=== PATIENT | male | born 1985 ===

== ENCOUNTER 2018-11-13 12:53 | Observation (INO) | payer OTHER ==
[2018-11-13 13:05] VITALS: BMI 26.7
--- NOTE | 2018-11-13 13:49 | ED PDOC ---
HPI: Chest Pain Time Seen by Provider: 11/13/18 13:25 Chief Complaint (Nursing): Chest Pain Chief Complaint (Provider): Chest Pain History Per: Patient History/Exam Limitations: no limitations Onset/Duration Of Symptoms: Days (last night) Current Symptoms Are (Timing): Still Present Additional Complaint(s): 33 year old male presents to the ED an evaluation of chest pain and palpitations associated with shortness of breath for 2 hours. He admits to doing cocaine and alcohol last night. Otherwise, he denies fever. PMD: no family provider Past Medical History Reviewed: Historical Data, Nursing Documentation, Vital Signs Vital Signs: Last Vital Signs Temp 98.1 F 11/13/18 13:08 Pulse 101 H 11/13/18 13:08 Resp 18 11/13/18 13:08 BP 131/89 11/13/18 13:08 Pulse Ox 98 11/13/18 13:08 - Medical History PMH: No Chronic Diseases - Family History Family History: States: Unknown Family Hx - Social History Alcohol: Social Drugs: Cannabis - Home Medications Home Medications: Ambulatory Orders Medication Instructions Recorded No Known Home Med 11/13/18 - Allergies Allergies/Adverse Reactions: Allergies Allergy/AdvReac Type Severity Reaction Status Date / Time No Known Allergies Allergy Verified 11/13/18 13:07 Review of Systems ROS Statement: Except As Marked, All Systems Reviewed And Found Negative Constitutional: Negative for: Fever Cardiovascular: Positive for: Chest Pain, Palpitations Respiratory: Positive for: Shortness of Breath Physical Exam - Reviewed Nursing Documentation Reviewed: Yes Vital Signs Reviewed: Yes - Physical Exam Appears: Positive for: Non-toxic, No Acute Distress Head Exam: Positive for: ATRAUMATIC, NORMAL INSPECTION, NORMOCEPHALIC Skin: Positive for: Normal Color, Warm, Dry Eye Exam: Positive for: EOMI, Normal appearance, PERRL ENT: Positive for: Normal ENT Inspection Neck: Positive for: Normal, Painless ROM, Supple. Negative for: Decreased ROM Cardiovascular/Chest: Positive for: Regular Rate, Rhythm. Negative for: Murmur Respiratory: Positive for: Normal Breath Sounds. Negative for: Respiratory Distress Gastrointestinal/Abdominal: Positive for: Normal Exam, Soft Back: Positive for: Normal Inspection Extremity: Positive for: Normal ROM Neurologic/Psych: Positive for: Alert, Oriented (x3) - Laboratory Results Result Diagrams: 11/13/18 14:28 11/13/18 14:28 - ECG ECG: Positive for: Interpreted By Me, Viewed By Me ECG Rhythm: Positive for: Sinus Rhythm Rate: 98 O2 Sat by Pulse Oximetry: 98 Medical Decision Making Medical Decision Making: Time: 1329 Impression: chest pain, palpitations associated with cocaine and alcohol use r/o ACS Plan: --EKG --Alcohol serum --CMP --Drug screen --Troponin --ED urine dipstick --CBC w/ differential --Chest two views [RAD] --Ativan 1mg --Reevaluation EKG: Normal sinus rhythm at [address] changes 1451 CXR: FINDINGS: LUNGS: Poor inspiration with low lung volumes, crowded bronchovascular markings and mild bibasilar atelectasis. There is a small approximately 4 mm elliptical shap ed nodular density seen in the right CP angle overlying the right posterior anterior 6 rib and right posterior 8th rib. This probably represents a small granuloma however small bone island or osteoma not completely excluded. Repeat radiographs in 2 months could be performed to assess stability alternately, nonemergent CT scan of the chest could be obtained. PLEURA: No significant pleural effusion identified. No pneumothorax apparent. CARDIOVASCULAR: No aortic atherosclerotic calcification present. Normal cardiac size. No pulmonary vascular congestion. OSSEOUS STRUCTURES: No significant abnormalities. VISUALIZED UPPER ABDOMEN: Normal. OTHER FINDINGS: None. IMPRESSION: Poor inspiration with low lung volumes, crowded bronchovascular markings and mild bibasilar atelectasis. There is a small approximately 4 mm elliptical shaped nodular density seen in the right CP angle overlying the right posterior anterior 6 rib and right posterior 8th rib. This probably represents a small granuloma however small bone island or osteoma not completely excluded. Repeat radiographs in 2 months could be performed to assess stability alternately, nonemergent CT scan of the chest could be obtained. Shlomo Attestation: Documented by Laura Larson, acting as a scribe for Bonilla Jean Baptiste MD. Provider Scribe Attestation: All medical record entries made by the Scribe were at my direction and person ally dictated by me. I have reviewed the chart and agree that the record accurately reflects my personal performance of the history, physical exam, medical decision making, and the department course for this patient. I have also personally directed, reviewed, and agree with the discharge instructions and disposition. Disposition - Clinical Impression Clinical Impression: Chest pain, Cocaine abuse - Patient ED Disposition Is Patient to be Admitted: Yes - Disposition Disposition Time: 17:36 Condition: FAIR Forms: [employer]! ([place]) - Pt Status Changed To: Hospital Disposition Of: Observation - POA Present On Arrival: None
[2018-11-13 14:55] LABS: BASO % 0.2 % (0.0-2.0); EOS # 0.1 K/uL (0.0-0.7); EOS % 0.8 % (0.0-4.0); HEMOGLOBIN 14.9 g/dL (12.0-18.0); LYMPH # 1.2 K/uL (1.0-4.3); LYMPH % 18.4 % (20.0-40.0); MEAN CELL VOLUME 94.3 fl (80.0-94.0); MEAN CORPUSCULAR HEMOGLOBIN 31.8 pg (27.0-31.0); MEAN CORPUSCULAR HGB CONC 33.7 g/dL (33.0-37.0); MEAN PLATELET VOLUME 8.2 fl (7.2-11.7); MONO # 0.3 K/uL (0.0-0.8); MONO % 4.6 % (0.0-10.0); NRBC % 0.1 % (0.0-0.0); RBC 4.69 Mil/uL (4.40-5.90); RED CELL DISTRIBUTION WIDTH 13.1 % (11.5-14.5); WHITE BLOOD COUNT 6.6 K/uL (4.8-10.8)
--- NOTE | 2018-11-13 14:55 | RAD ---
Date of service: 11/13/2018 HISTORY: chest pain COMPARISON: No prior study available comparison TECHNIQUE: Chest PA and lateral FINDINGS: LUNGS: Poor inspiration with low lung volumes, crowded bronchovascular markings and mild bibasilar atelectasis. There is a small approximately 4 mm elliptical shaped nodular density seen in the right CP angle overlying the right posterior anterior 6 rib and right posterior 8th rib. This probably represents a small granuloma however small bone island or osteoma not completely excluded. Repeat radiographs in 2 months could be performed to assess stability alternately, nonemergent CT scan of the chest could be obtained. PLEURA: No significant pleural effusion identified. No pneumothorax apparent. CARDIOVASCULAR: No aortic atherosclerotic calcification present. Normal cardiac size. No pulmonary vascular congestion. OSSEOUS STRUCTURES: No significant abnormalities. VISUALIZED UPPER ABDOMEN: Normal. OTHER FINDINGS: None. IMPRESSION: Poor inspiration with low lung volumes, crowded bronchovascular markings and mild bibasilar atelectasis. There is a small approximately 4 mm elliptical shaped nodular density seen in the right CP angle overlying the right posterior anterior 6 rib and right posterior 8th rib. This probably represents a small granuloma however small bone island or osteoma not completely excluded. Repeat radiographs in 2 months could be performed to assess stability alternately, nonemergent CT scan of the chest could be obtained.
[2018-11-13 15:03] LABS: ALB/GLOB RATIO 1.4 (1.0-2.1); ALBUMIN 4.9 g/dL (3.5-5.0); ALT/SGPT 73 U/L (21-72); AST/SGOT 46 U/L (17-59); BLOOD UREA NITROGEN 17 mg/dl (9-20); CALCIUM 9.3 mg/dL (8.4-10.2); GFR NON-AFRICAN AMERICAN > 60
[2018-11-13 18:10] LABS: BARBITURATES, UR NEGATIVE (NEGATIVE); BENZODIAZEPINES, UR NEGATIVE (NEGATIVE); OPIATES, UR NEGATIVE (NEGATIVE); PHENCYCLIDINE, UR NEGATIVE (NEGATIVE)
--- NOTE | 2018-11-13 19:00 | CP.PCM.HP ---
History of Present Illness - History of Present Illness History of Present Illness: 33 y/o male with no PMH came to ER for evaluation because he was not feeling well. History obtained from patient .As per him he was drinking last night heavily , more than 15 beers and used some cocaine that was given to him by a friend at 3 AM . As per patient this was the first time he used drugs (snorted) . Later he states that fell asleep and woke up this AM at 11 and felt nauseated , vomited once and saw fresh blood in his gastric content and started feeling sweaty with numbness to his hands and feet, feeling like he could not breathe. He also states that has some pain in the left chest mild with no radiation. He came to ED where he receivced some ativan and norw feels better . At present he is hemodynamically stable HR 101 BP 131/89 RR 18 saturating 98 % in RA Denies any dyspnea on exertion ,PND , orthopnea , urinary symptoms or chnages in bowel movements Allergies ; NKDA PMH :none Medications; None Surgery ; None Family history ; Mother and father have DM Social history: Lives with a friend in [place] , works in a restaurant in [place] , and has 3 children but family lives in [place] ,Smokes less 1 cigg / day ,drinks , 5 beer /day , denies prior durg abuse history ROS ; 10 point review of system negative except above PMD ; No PMD Present on Admission - Present on Admission Any Indicators Present on Admission: No Review of Systems - Review of Systems All systems: reviewed and no additional remarkable complaints except Past Patient History - Infectious Disease Hx of Infectious Diseases: None - Tetanus Immunizations Tetanus Immunization: Unknown - Past Medical History & Family History Past Medical History?: No Past Family History: Reviewed and not pertinent - Past Social History Smoking Status: Light Smoker < 10 Cigarettes Daily Chewing Tobacco Use: No Cigar Use: No Alcohol: > 2 Drinks/Day Drugs: Cannabis, Cocaine Home Situation {Lives}: Friends Domestic Violence: Negative - PSYCHIATRIC Hx Substance Use: Yes - SURGICAL HISTORY Hx Surgeries: No Meds Allergies/Adverse Reactions: Allergies Allergy/AdvReac Type Severity Reaction Status Date / Time No Known Allergies Allergy Verified 11/13/18 13:07 Physical Exam - Constitutional Appears: Non-toxic, No Acute Distress - Head Exam Head Exam: ATRAUMATIC, NORMAL INSPECTION, NORMOCEPHALIC - Eye Exam Eye Exam: EOMI, Normal appearance, PERRL Pupil Exam: NORMAL ACCOMODATION - ENT Exam ENT Exam: Mucous Membranes Moist, Normal Exam - Neck Exam Neck exam: Positive for: Full Rom, Normal Inspection - Respiratory Exam Respiratory Exam: Clear to Auscultation Bilateral, NORMAL BREATHING PATTERN. absent: Rales, Rhonchi, Wheezes - Cardiovascular Exam Cardiovascular Exam: REGULAR RHYTHM, RRR, +S1, +S2. absent: JVD - GI/Abdominal Exam GI & Abdominal Exam: Normal Bowel Sounds, Soft. absent: Distended, Guarding, Rebound, Tenderness - Rectal Exam Rectal Exam: Deferred - Extremities Exam Extremities exam: Positive for: normal capillary refill, normal inspection, pedal pulses present. Negative for: calf tenderness, pedal edema - Back Exam Back exam: NORMAL INSPECTION - Neurological Exam Neurological exam: Alert, CN II-XII Intact, Oriented x3, Reflexes Normal - Psychiatric Exam Psychiatric exam: Normal Affect, Normal Mood - Skin Skin Exam: Dry, Intact, Normal Color, Warm Results - Vital Signs Recent Vital Signs: Last Vital Signs Temp 98.1 F 11/13/18 13:08 Pulse 98 H 11/13/18 17:36 Resp 18 11/13/18 13:08 BP 131/89 11/13/18 13:08 Pulse Ox 98 11/13/18 17:36 - Labs Result Diagrams: 11/13/18 14:28 11/13/18 14:28 Labs: Laboratory Results - last 24 hr 11/13/18 11/13/18 11/13/18 14:28 14:28 17:46 WBC 6.6 RBC 4.69 Hgb 14.9 Hct 44.2 MCV 94.3 H MCH 31.8 H MCHC 33.7 RDW 13.1 Plt Count 302 MPV 8.2 Neut % (Auto) 76.0 H Lymph % (Auto) 18.4 L [place] % (Auto) 4.6 Eos % (Auto) 0.8 Baso % (Auto) 0.2 Neut # (Auto) 5.0 Lymph # (Auto) 1.2 [place] # (Auto) 0.3 Eos # (Auto) 0.1 Baso # (Auto) 0.0 Sodium 140 Potassium 4.1 Chloride 102 Carbon Dioxide 22 Anion Gap 20 BUN 17 Creatinine 0.6 L Est GFR ( Amer) > 60 Est GFR (Non-Af Amer) > 60 Random Glucose 134 H Calcium 9.3 Total Bilirubin 0.3 AST 46 ALT 73 H Alkaline Phosphatase 86 Troponin I < 0.0120 Total Protein 8.4 H Albumin 4.9 Globulin 3.5 Albumin/Globulin Ratio 1.4 Urine Opiates Screen Negative Urine Methadone Screen Negative Ur Barbiturates Screen Negative Ur Phencyclidine Scrn Negative Ur Amphetamines Screen Negative U Benzodiazepines Scrn Negative U Oth Cocaine Metabols Positive H U Cannabinoids Screen Negative Alcohol, Quantitative 62 H - Imaging and Cardiology Chest x-ray Additional comment: no active disease Assessment & Plan - Assessment and Plan (Free Text) Assessment: 33 y/o male with no PMH came to ER for evaluation because he was not feeling well. History obtained from patient .As per him he was drinking last night heavily , more than 15 beers and used some cocaine that was given to him by a friend at 3 AM . As per patient this was the first time he used drugs (snorted) . Later he states that fell asleep and woke up at 11 AM ,felt nauseated , vomited once and saw fresh blood in his gastric content and started feeling sweaty with numbness to his hands and feet, feeling like he could not breathe. He also states that had some pain in the left side of his chest ,mild with no radiation. In ER was given Ativan and felt better Patient also gives history of social anxiety in public 1. Upper GI bleed Most likely secondary to ETOH gastritis Denies prior similar episodes Hgb 14 Will repeat CBC in AM Start Protonix IV Counselled on ETOH abuse 2. ETOH abuse/ intoxication Will start IVF , thiamine, Folic acid and MVI Withdrawal precautions Ativan PRN for withdrwals 3. Chest pain unlikely cardiac in nature Place under observation in telemetry Most likely panic / anxiety attack Ativan PRN Cycle troponins Q8 hours to rule out ACS Check Lipid profile 4. Cocaine abuse counselled patient on Drug abuse 5. DVt prophylaxis SCD
[2018-11-13] MEDS ORDERED: Thiamine 100 MG, Folic Acid 1 MG, Multivitamin (MVI) 10 ML in Sodium Chloride 0.9% 1,00... IV SCH (19:15)
--- NOTE | 2018-11-13 22:24 | CARD ---
APPROVED REPORT Date of service: 11/13/2018 EKG Measurement Heart [id number] <Conclusion> Normal sinus rhythm Normal ECG
[2018-11-14 05:17] LABS: HEMOGLOBIN 13.9 g/dL (12.0-18.0); MEAN CELL VOLUME 96.9 fl (80.0-94.0); MEAN CORPUSCULAR HEMOGLOBIN 32.4 pg (27.0-31.0); MEAN CORPUSCULAR HGB CONC 33.5 g/dL (33.0-37.0); RBC 4.29 Mil/uL (4.40-5.90); RED CELL DISTRIBUTION WIDTH 13.3 % (11.5-14.5); WHITE BLOOD COUNT 7.6 K/uL (4.8-10.8)
[2018-11-14 05:29] LABS: HDL CHOLESTEROL 43 MG/DL (30-70)
[2018-11-14 05:39] LABS: LDL CHOLESTEROL 128 mg/dL (0-129)
[2018-11-14 07:48] VITALS: RESP 18
[2018-11-14] MEDS ORDERED: Pneumococcal 23-Valent Vaccine IM ONE (10:45)
[2018-11-14] MEDS ORDERED: Influenza Vaccine 60 MCG/0.5 ML SYR (3 yr & up) IM ONE (10:45)
[2018-11-14 12:07] VITALS: BP 118/72; PULSE 66; TEMP 98.1; O2SAT 96
--- NOTE | 2018-11-14 13:53 | CP.PCM.DIS ---
<Fabian Krause - Last Filed: 11/14/18 14:06> Provider - Provider Date of Admission: 11/13/18 17:35 Attending physician: Yohannes Koehler MD Time Spent in preparation of Discharge (in minutes): 30 Hospital Course - Lab Results Lab Results: Most Recent Lab Values WBC 7.6 K/uL (4.8-10.8) 11/14/18 04:10 RBC 4.29 Mil/uL (4.40-5.90) L 11/14/18 04:10 Hgb 13.9 g/dL (12.0-18.0) 11/14/18 04:10 Hct 41.6 % (35.0-51.0) 11/14/18 04:10 MCV 96.9 fl (80.0-94.0) H D 11/14/18 04:10 MCH 32.4 pg (27.0-31.0) H 11/14/18 04:10 MCHC 33.5 g/dL (33.0-37.0) 11/14/18 04:10 RDW 13.3 % (11.5-14.5) 11/14/18 04:10 Plt Count 271 K/uL (130-400) 11/14/18 04:10 MPV 8.2 fl (7.2-11.7) 11/13/18 14:28 Neut % (Auto) 76.0 % (50.0-75.0) H 11/13/18 14:28 Lymph % (Auto) 18.4 % (20.0-40.0) L 11/13/18 14:28 [place] % (Auto) 4.6 % (0.0-10.0) 11/13/18 14:28 Eos % (Auto) 0.8 % (0.0-4.0) 11/13/18 14:28 Baso % (Auto) 0.2 % (0.0-2.0) 11/13/18 14:28 Neut # (Auto) 5.0 K/uL (1.8-7.0) 11/13/18 14:28 Lymph # (Auto) 1.2 K/uL (1.0-4.3) 11/13/18 14:28 [place] # (Auto) 0.3 K/uL (0.0-0.8) 11/13/18 14:28 Eos # (Auto) 0.1 K/uL (0.0-0.7) 11/13/18 14:28 Baso # (Auto) 0.0 K/uL (0.0-0.2) 11/13/18 14:28 Sodium 140 mmol/l (132-148) 11/13/18 14:28 Potassium 4.1 MMOL/L (3.6-5.0) 11/13/18 14:28 Chloride 102 mmol/L (98-107) 11/13/18 14:28 Carbon Dioxide 22 mmol/L (22-30) 11/13/18 14:28 Anion Gap 20 (10-20) 11/13/18 14:28 BUN 17 mg/dl (9-20) 11/13/18 14:28 Creatinine 0.6 mg/dl (0.8-1.5) L 11/13/18 14:28 Est GFR ( Amer) > 60 11/13/18 14:28 Est GFR (Non-Af Amer) > 60 11/13/18 14:28 Random Glucose 134 mg/dL (75-110) H 11/13/18 14:28 Calcium 9.3 mg/dL (8.4-10.2) 11/13/18 14:28 Total Bilirubin 0.3 mg/dl (0.2-1.3) 11/13/18 14:28 AST 46 U/L (17-59) 11/13/18 14:28 ALT 73 U/L (21-72) H 11/13/18 14:28 Alkaline Phosphatase 86 U/L (38-126) 11/13/18 14:28 Troponin I < 0.0120 ng/mL (0.00-0.120) 11/14/18 04:10 Total Protein 8.4 G/DL (6.3-8.2) H 11/13/18 14:28 Albumin 4.9 g/dL (3.5-5.0) 11/13/18 14:28 Globulin 3.5 gm/dL (2.2-3.9) 11/13/18 14:28 Albumin/Globulin Ratio 1.4 (1.0-2.1) 11/13/18 14:28 Triglycerides 176 mg/DL (0-149) H 11/14/18 04:10 Cholesterol 207 mg/dL (0-199) H 11/14/18 04:10 LDL Cholesterol Direct 128 mg/dL (0-129) 11/14/18 04:10 HDL Cholesterol 43 MG/DL (30-70) 11/14/18 04:10 Urine Opiates Screen Negative (NEGATIVE) 11/13/18 17:46 Urine Methadone Screen Negative (NEGATIVE) 11/13/18 17:46 Ur Barbiturates Screen Negative (NEGATIVE) 11/13/18 17:46 Ur Phencyclidine Scrn Negative (NEGATIVE) 11/13/18 17:46 Ur Amphetamines Screen Negative (NEGATIVE) 11/13/18 17:46 U Benzodiazepines Scrn Negative (NEGATIVE) 11/13/18 17:46 U Oth Cocaine Metabols Positive (NEGATIVE) H 11/13/18 17:46 U Cannabinoids Screen Negative (NEGATIVE) 11/13/18 17:46 Alcohol, Quantitative 62 mg/dl (0-10) H 11/13/18 14:28 - Hospital Course Hospital Course: 33 y/o male with no PMH admitted for chest pain, blood vomiting x 1 and first time cocain use. Patient also admits drinking heavily 1 day PRIMARY CARE MD. Patient evaluated in ER, received ativan with improvement in chest pain. EKG showed NSR, Troponis x 3 negative, CBC, CMP unremarkable. Patient started on pantoprazole for upper GI bleed. No further episode of vomiting since admission, tolerated diet well PO. Patient ambulating well w/o dizziness, headache, CP, SOB and stable VS. Patient to be discharged home on Librium tapering dose, pantoprazole 40 daily and thiamine. Patient to F/U with transition clinic with Dr. Donald. Discharge Medications - Librium 10 mg take Q6hr day1, Q8hr day 2, Q12 hr day 3 and QD day 4 - Pantoprazole 40 mg PO daily x 14 day - Thiamine 100 mg PO daily x 30 days Discharge Exam - Head Exam Head Exam: ATRAUMATIC, NORMAL INSPECTION, NORMOCEPHALIC - Eye Exam Eye Exam: EOMI, Normal appearance - ENT Exam ENT Exam: Mucous Membranes Moist - Neck Exam Neck exam: Full Rom - Respiratory Exam Respiratory Exam: Clear to PA & Lateral, NORMAL BREATHING PATTERN, UNREMARKABLE. absent: Rales, Rhonchi, Wheezes, Respiratory Distress - Cardiovascular Exam Cardiovascular Exam: REGULAR RHYTHM, +S1, +S2 - GI/Abdominal Exam GI & Abdominal Exam: Normal Bowel Sounds, Unremarkable. absent: Distended - Back Exam Back exam: NORMAL INSPECTION - Neurological Exam Neurological exam: Alert, Oriented x3 - Psychiatric Exam Psychiatric exam: Normal Affect, Normal Mood - Skin Skin Exam: Dry, Intact, Normal Color, Warm Discharge Plan - Discharge Medications Prescriptions: Omeprazole 40 mg PO DAILY #14 capsule. Thiamine [Vitamin B1 Tab] 100 mg PO DAILY #30 tab - Follow Up Plan Condition: FAIR Disposition: HOME/ ROUTINE Instructions: Chest Pain (DC), Drug Abuse and Drug Addiction (DC) Additional Instructions: follow up with primary doctor in 1 week Referrals: [facility] [Outside] <MorenoJenifferShimabreann Burnham - Last Filed: 11/14/18 14:55> Provider - Provider Date of Admission: 11/13/18 17:35 Attending physician: Yohannes Koehler MD Hospital Course - Lab Results Lab Results: Most Recent Lab Values WBC 7.6 K/uL (4.8-10.8) 11/14/18 04:10 RBC 4.29 Mil/uL (4.40-5.90) L 11/14/18 04:10 Hgb 13.9 g/dL (12.0-18.0) 11/14/18 04:10 Hct 41.6 % (35.0-51.0) 11/14/18 04:10 MCV 96.9 fl (80.0-94.0) H D 11/14/18 04:10 MCH 32.4 pg (27.0-31.0) H 11/14/18 04:10 MCHC 33.5 g/dL (33.0-37.0) 11/14/18 04:10 RDW 13.3 % (11.5-14.5) 11/14/18 04:10 Plt Count 271 K/uL (130-400) 11/14/18 04:10 MPV 8.2 fl (7.2-11.7) 11/13/18 14:28 Neut % (Auto) 76.0 % (50.0-75.0) H 11/13/18 14:28 Lymph % (Auto) 18.4 % (20.0-40.0) L 11/13/18 14:28 [place] % (Auto) 4.6 % (0.0-10.0) 11/13/18 14:28 Eos % (Auto) 0.8 % (0.0-4.0) 11/13/18 14:28 Baso % (Auto) 0.2 % (0.0-2.0) 11/13/18 14:28 Neut # (Auto) 5.0 K/uL (1.8-7.0) 11/13/18 14:28 Lymph # (Auto) 1.2 K/uL (1.0-4.3) 11/13/18 14:28 [place] # (Auto) 0.3 K/uL (0.0-0.8) 11/13/18 14:28 Eos # (Auto) 0.1 K/uL (0.0-0.7) 11/13/18 14:28 Baso # (Auto) 0.0 K/uL (0.0-0.2) 11/13/18 14:28 Sodium 140 mmol/l (132-148) 11/13/18 14:28 Potassium 4.1 MMOL/L (3.6-5.0) 11/13/18 14:28 Chloride 102 mmol/L (98-107) 11/13/18 14:28 Carbon Dioxide 22 mmol/L (22-30) 11/13/18 14:28 Anion Gap 20 (10-20) 11/13/18 14:28 BUN 17 mg/dl (9-20) 11/13/18 14:28 Creatinine 0.6 mg/dl (0.8-1.5) L 11/13/18 14:28 Est GFR ( Amer) > 60 11/13/18 14:28 Est GFR (Non-Af Amer) > 60 11/13/18 14:28 Random Glucose 134 mg/dL (75-110) H 11/13/18 14:28 Calcium 9.3 mg/dL (8.4-10.2) 11/13/18 14:28 Total Bilirubin 0.3 mg/dl (0.2-1.3) 11/13/18 14:28 AST 46 U/L (17-59) 11/13/18 14:28 ALT 73 U/L (21-72) H 11/13/18 14:28 Alkaline Phosphatase 86 U/L (38-126) 11/13/18 14:28 Troponin I < 0.0120 ng/mL (0.00-0.120) 11/14/18 04:10 Total Protein 8.4 G/DL (6.3-8.2) H 11/13/18 14:28 Albumin 4.9 g/dL (3.5-5.0) 11/13/18 14:28 Globulin 3.5 gm/dL (2.2-3.9) 11/13/18 14:28 Albumin/Globulin Ratio 1.4 (1.0-2.1) 11/13/18 14:28 Triglycerides 176 mg/DL (0-149) H 11/14/18 04:10 Cholesterol 207 mg/dL (0-199) H 11/14/18 04:10 LDL Cholesterol Direct 128 mg/dL (0-129) 11/14/18 04:10 HDL Cholesterol 43 MG/DL (30-70) 11/14/18 04:10 Urine Opiates Screen Negative (NEGATIVE) 11/13/18 17:46 Urine Methadone Screen Negative (NEGATIVE) 11/13/18 17:46 Ur Barbiturates Screen Negative (NEGATIVE) 11/13/18 17:46 Ur Phencyclidine Scrn Negative (NEGATIVE) 11/13/18 17:46 Ur Amphetamines Screen Negative (NEGATIVE) 11/13/18 17:46 U Benzodiazepines Scrn Negative (NEGATIVE) 11/13/18 17:46 U Oth Cocaine Metabols Positive (NEGATIVE) H 11/13/18 17:46 U Cannabinoids Screen Negative (NEGATIVE) 11/13/18 17:46 Alcohol, Quantitative 62 mg/dl (0-10) H 11/13/18 14:28 Attending/Attestation - Attestation I have personally seen and examined this patient.: Yes I have fully participated in the care of the patient.: Yes I have reviewed all pertinent clinical information, including history, physical exam and plan: Yes Notes (Text): Chest Pain ACS ruled out , pain prob Gastrointestinal from vomiting Alcohol Abuse/Intoxication Cocaine Abuse Blood Tinge Vomitus prob from Edyta Win vs Alcohol Gastritis - Trop x 3 negative - Librium tapering dose, Thiamine PO - H/H stable - Pt is ambulatory, CP free , no further vomiting nor any recurrence of blood tinge vomitus, VS stable
== END 2018-11-14 15:20 | disposition home or self-care (01) ==
LOC: H.ER 12:53 → H.ERHOLD 17:35 → H.TEL 19:07
PROVIDERS: ADMIT Hospitalist; ATTEND Hospitalist
DX: K29.21 Alcoholic gastritis with bleeding (principal); Z83.3 Family history of diabetes mellitus; Z87.891 Personal history of nicotine dependence; F40.10 Social phobia, unspecified; R00.2 Palpitations; F14.10 Cocaine abuse, uncomplicated; J98.11 Atelectasis; F10.129 Alcohol abuse with intoxication, unspecified; Y90.3 Blood alcohol level of 60-79 mg/100 ml; Z23 Encounter for immunization
CPT/HCPCS: 36415; 71046; 80053; 80061; 80320; 80324; 80345; 80346; 80349; 80353; 80358; 80361; 83992; 84484; 85025; 85027; 90471; 90674; 90732; 93005; 99285; C9113; G0378; J3411; J7030